=== PATIENT | female | born 1960 | race Caucasian/White ===

== ENCOUNTER 2017-04-12 19:45 | Outpatient (CLI) | payer BC | END 2017-04-13 06:10 | disposition home or self-care (01) | LOC: SLEEP 19:45 | PROVIDERS: ATTEND Nurse Practitioner | DX: G47.33 Obstructive sleep apnea (adult) (pediatric) (principal); G47.10 Hypersomnia, unspecified | CPT/HCPCS: 95810 ==

== ENCOUNTER 2019-08-24 08:24 | Outpatient (RCR) | payer BC | END 2019-11-22 | disposition home or self-care (01) | LOC: CARD 08:24 | PROVIDERS: ATTEND Nurse Practitioner Family | DX: R00.2 Palpitations (principal) | CPT/HCPCS: 93225; 93226 ==

== ENCOUNTER 2020-11-08 13:45 | Outpatient (CLI) | payer BC | END 2020-11-08 14:15 | disposition home or self-care (01) | LOC: SLEEP 13:45 | PROVIDERS: ATTEND Otolaryngology Otolaryngology/Facial Plastic Surgery | DX: G47.33 Obstructive sleep apnea (adult) (pediatric) (principal) | CPT/HCPCS: G0399 ==